=== PATIENT | male | born 1965 | race Caucasian/White ===

== ENCOUNTER → 2016-11-06 | Outpatient (CLI) | payer BC ==
[~2016-11-06] MED LIST: AZEL0.15; DLN100 PO; LORA10TA57 PO; MOME50SP5; VALA1TAB2 PO
[2016-11-06 11:01] LABS: BASO % 1.2 %; BASO ABS # 0.06 K/uL (0-0.2); COMPLETE YES; EOS % 2.4 %; HEMATOCRIT 43.2 % (42-52); IG% 0.2 %; LYMPH % 32.2 %; LYMPH ABS # 1.64 K/uL (1.2-3.4); MEAN CELL VOLUME 91.7 fL (80-100); MEAN CORPUSCULAR HEMOGLOBIN 31.4 pg (25-34); MEAN CORPUSCULAR HGB CONC 34.3 g/dl (32-36); MEAN PLATELET VOLUME 9.8 fL (7.4-10.4); PLATELET COUNT 183 K/uL (130-400); RED BLOOD COUNT 4.71 M/uL (4.7-6.1)
[2016-11-06 11:16] LABS: ALB/GLOB RATIO 1.1 (0.9-2); ALKALINE PHOSPHATASE 67 U/L (45-117); ALT/SGPT 48 U/L (12-78); AST/SGOT 26 U/L (15-37); BLOOD UREA NITROGEN 16 mg/dl (7-18); BUN/CREATININE RATIO 16.3 (10-20); CALCIUM 8.7 mg/dl (8.5-10.1); CARBON DIOXIDE 30 mmol/L (21-32); CHLORIDE 104 mmol/L (98-107); CHOLESTEROL 200 mg/dl (0-200); CHOLESTEROL/HDL RATIO 2.5; GLUCOSE 116 mg/dl (70-99); HDL CHOLESTEROL 79 mg/dl; LDL CHOLESTEROL CALCULATED 107 mg/dl; POTASSIUM 3.9 mmol/L (3.5-5.1); SODIUM 141 mmol/L (136-145); TRIGLYCERIDES 72 mg/dl (0-150); VERY LOW DENSITY LIPOPROT CALC 14 mg/dl
== END | disposition home or self-care (01) ==
LOC: C.LABBC 08:43
PROVIDERS: ATTEND Nurse Practitioner Family
DX: G40.909 Epilepsy, unspecified, not intractable, without status epilepticus (principal); E78.5 Hyperlipidemia, unspecified

== ENCOUNTER → 2016-11-06 | Outpatient (CLI) | payer OTHER, BC ==
--- NOTE | 2016-11-06 11:05 | DIAGNOSTIC IMAGING REPORT ---
RIGHT ANKLE 3 VIEWS CLINICAL HISTORY: Right ankle pain. FINDINGS: 3 views of the right ankle are correlated with radiograph of the right tibia and fibula dated 08/30/2009. The skeletal structures are well mineralized. No fracture is seen. The ankle mortise is intact. There is a joint effusion. Soft tissue edema is present around the ankle. A large plantar calcaneal enthesophyte is noted. IMPRESSION: Soft tissue swelling and joint effusion. No right ankle fracture is seen. Electronically signed by: Kan Cabrera M.D. 11/06/2016 11:03 AM Dictated Date/Time: 11/06/2016 11:02 AM
== END | disposition home or self-care (01) ==
LOC: C.RAD1850 10:39
PROVIDERS: ATTEND Nurse Practitioner Adult Health
DX: M25.571 Pain in right ankle and joints of right foot (principal); M25.471 Effusion, right ankle; M79.89 Other specified soft tissue disorders

== ENCOUNTER → 2016-12-17 | Outpatient (CLI) | payer BC ==
[~2016-12-17] MED LIST changes: +LORA-749 PO; -LORA10TA57 PO
== END | disposition home or self-care (01) ==
LOC: C.PATHSPEC 11:29
PROVIDERS: ATTEND Plastic Surgery
DX: L72.0 Epidermal cyst (principal)

== ENCOUNTER → 2017-05-08 | Outpatient (CLI) | payer BC ==
[~2017-05-08] MED LIST changes: -LORA-749 PO; +LORA10TA57 PO
[2017-05-08 11:29] LABS: BLOOD UREA NITROGEN 21 mg/dl (7-18); CALCIUM 8.8 mg/dl (8.5-10.1); CARBON DIOXIDE 28 mmol/L (21-32); CHLORIDE 104 mmol/L (98-107); CREATININE 0.87 mg/dl (0.60-1.40); GLUCOSE 106 mg/dl (70-99); POTASSIUM 4.2 mmol/L (3.5-5.1); SODIUM 138 mmol/L (136-145)
[2017-05-08 11:33] LABS: ESTIMATED AVERAGE GLUCOSE 111 mg/dl; HA1C FLAG Normal (Normal)
== END | disposition home or self-care (01) ==
LOC: C.LABBC 08:03
PROVIDERS: ATTEND Nurse Practitioner Family
DX: E78.5 Hyperlipidemia, unspecified (principal); R73.9 Hyperglycemia, unspecified